=== PATIENT | male | born 1975 | race Two or more races ===

== ENCOUNTER 2025-05-17 14:50 | Emergency (ER) | payer MEDICAID, SELFPAY ==
[2025-05-17 15:01] VITALS: BP 169/110; BP 170/127; PULSE 95; RESP 20; TEMP 36.8; O2SAT 95; BMI 33.6
--- NOTE | 2025-05-17 15:22 | XR_ITS ---
Examination: PA lateral chest 2 views Technique: Upright PA lateral chest 2 views Date and time: May 17, 2025, 1533 hrs. Comparison June 23, 2023 Indications: Shortness of breath chest pain coughing beginning 4 days ago. Findings: Suspicious for early bilateral perihilar pneumonia. Minor prominence left ventricle. No pulmonary edema Impression: Suspicious for early bilateral perihilar pneumonia.
[2025-05-17 16:02] VITALS: PULSE 88
[2025-05-17] MEDS: ALBUTEROL RT 2.5 MG/3 ML NEBU 5 MG INH ×2 (16:02→16:43)
[2025-05-17 16:05] VITALS: PULSE 85; RESP 18; O2SAT 100
--- NOTE | 2025-05-17 16:33 | PD.EDSOB ---
ED SOB =RME/HPI General Chief Complaint: Shortness of Breath/Dyspnea Stated Complaint: SOB X 4 days, chest pressure, cough Time Seen by Provider: 05/17/25 15:17 Arrival date/time: 05/17/25 14:50 This is a 50-year-old male that comes in with complaints of cough, shortness of breath. Patient has a history of asthma. Patient states that he ran out of his inhaler. Patient also used to use an Advair inhaler as well and he no longer has this as well. Patient has a history of diabetes, high blood pressure, hyperlipidemia. Related Data Home Medications ?Medication ?Instructions ?Recorded ?Confirmed metoprolol tartrate 50 mg tablet 50 mg PO BID 09/24/18 11/09/19 metformin 500 mg tablet 500 mg PO BID 11/09/19 11/09/19 simvastatin 40 mg tablet 40 mg PO QHS 11/09/19 11/09/19 Previous Rx's ?Medication ?Instructions ?Recorded albuterol sulfate 90 mcg/actuation 2 puff inhalation QID PRN 05/17/25 aerosol inhaler shortness of breath or wheezing #8.5 grams azithromycin 250 mg tablet See Rx Instructions PO .COMPLEX #6 05/17/25 tabs prednisone 20 mg tablet 40 mg (2 x 20 mg) PO QDAY 4 days 05/17/25 #8 tabs Allergies Allergy/AdvReac Type Severity Reaction Status Date / Time No Known Allergies Allergy Verified 05/17/25 14:54 Course Orders Category Date Time Status XR chest 2V Stat Exams 05/17/25 15:22 Completed ALBUTEROL RT 3ml [Proventil Rt 3ml] Med 05/17/25 15:22 Discontinued 5 mg INH X1 ONE ALBUTEROL RT 5 ml [Proventil Rt 5 ml] Med 05/17/25 16:33 Once 5 mg INH X1 ONE cefTRIAXone [Rocephin] 1,000 mg Med 05/17/25 16:33 Ordered Lidocaine 1% 20 ml [Xylocaine 1% 20 ML] 2.1 ml IM X1 predniSONE Med 05/17/25 15:26 Discontinued 40 mg PO X1 ONE Vital Signs Vital signs: Vital Signs Temperature 98.2 F 05/17/25 15:01 Pulse Rate 95 05/17/25 15:01 Respiratory Rate 20 05/17/25 15:01 Blood Pressure 169/110 H 05/17/25 15:01 Pulse Oximetry (%) 95 05/17/25 15:01 Oxygen Delivery Method Room Air 05/17/25 15:01 Shortness of Breath / Dyspnea MDM Narrative MDM Narrative:: Findings: Suspicious for early bilateral perihilar pneumonia. Minor prominence left ventricle. No pulmonary edema Impression: Suspicious for early bilateral perihilar pneumonia. Chest x-ray shows early perihilar pneumonia. Will treat for pneumonia. Patient given two 5 mg treatments of albuterol. Patient feels better. Patient also given prednisone 40 mg. Patient told to follow-up about his blood pressure with his primary provider. Patient verbalized understanding. Will send patient home with a Z-Jay prednisone and an albuterol inhaler. Patient told to come back to the emergency room if symptoms change or worsen. Medications / Prescriptions Medication administrations:: Medication Administration History Albuterol (Albuterol Rt 25 Mg/5 Ml Nebu) 5 mg INH X1 ONE Stop: 05/17/25 16:34 Ceftriaxone Sodium 1,000 mg/ (Lidocaine HCl 2.1 ml) 0 mg IM X1 ONE Stop: 05/17/25 16:34 Discontinued Medications Albuterol (Albuterol Rt 2.5 Mg/3 Ml Nebu) 5 mg INH X1 ONE Stop: 05/17/25 15:23 Last Admin: 05/17/25 16:02 Dose: 5 mg Documented By: JORGE Prednisone (Prednisone 20 Mg Tablet) 40 mg PO X1 ONE Stop: 05/17/25 15:27 Last Admin: 05/17/25 15:40 Dose: 40 mg Documented By: ERICA Discharge Plan Plan Patient Disposition: HOME (Self Care) Patient condition on transfer: Stable Prescriptions/Referrals Prescriptions/Med Rec: New albuterol sulfate 90 mcg/actuation HFA aerosol inhaler 2 puff inhalation QID PRN (Reason: shortness of breath or wheezing) Qty: 8.5 0RF prednisone 20 mg tablet 40 mg PO QDAY 4 Days Qty: 8 0RF azithromycin 250 mg tablet See Rx Instructions .ROUTE .COMPLEX Qty: 6 0RF Rx Instructions: For 250 mg dose pack: take 500 mg today (day 1), then 250 mg for 4 days (days 2-5) No Action simvastatin 40 mg tablet 40 mg PO QHS metformin 500 mg tablet 500 mg PO BID metoprolol tartrate 50 mg Tablet 50 mg PO BID Referrals: Keegan Fletcher MD [Primary Care Provider] - In 1 week Problem List Clinical Impression: Pneumonia, RAD (reactive airway disease) Patient/Caregiver Discharge Instructions Discharge Activity: activity as tolerated Education Materials: ED Inhaler Use, ED Pneumonia (Adult) Additional Instructions: Follow up with primary provider in 1-2 days. Come back to ED if symptoms change or worsen Print Language: Chinese Stand Alone Forms: Dea Award Info., Patient Portal Info Letter PA/[employer] Supervising Physician PA/[employer] Supervising Physician: tree
[2025-05-17 16:43] VITALS: PULSE 81; PULSE 87; RESP 18; O2SAT 100
[2025-05-17] MEDS: cefTRIAXone 1,000 MG, LIDOCAINE 1% 20 ML 2.1 ML IM (17:19)
== END 2025-05-17 17:30 | disposition home or self-care (01) ==
PROVIDERS: Emergency Provider Nurse Practitioner Family; PCP Family Medicine
DX: J18.9 Pneumonia, unspecified organism (principal); J45.909 Unspecified asthma, uncomplicated
CPT/HCPCS: 71046; 94640; 96372; 99283; J0696; J3490; J7512